=== PATIENT | male | born 1950 | race Caucasian/White ===

== ENCOUNTER 2017-01-13 11:52 | Day surgery (SDC) | payer MEDICARE ==
[~2017-01-13 11:52] MED LIST: EC-81 ASPIRIN81 MG PO; MULTIVITAMIN ME1 TA1 PO; NITROSTAT0.4 MG SL; PRILOSEC20 MG PO
[2017-01-13 17:44] VITALS: BP 138/69
== END 2017-01-13 17:20 | disposition left against medical advice (07) ==
LOC: ENDO 11:52
PROVIDERS: ATTEND Internal Medicine Gastroenterology
PROC: 0DBN8ZX Excision of Sigmoid Colon, Via Natural or Artificial Opening Endoscopic, Diagnostic (ICD-10-PCS; principal; 2017-01-13)
DX: R19.5 Other fecal abnormalities (principal); R19.7 Diarrhea, unspecified; R10.32 Left lower quadrant pain; D12.5 Benign neoplasm of sigmoid colon; K64.4 Residual hemorrhoidal skin tags; K64.8 Other hemorrhoids; K21.9 Gastro-esophageal reflux disease without esophagitis; R11.2 Nausea with vomiting, unspecified; I25.10 Atherosclerotic heart disease of native coronary artery without angina pectoris; I44.1 Atrioventricular block, second degree

== ENCOUNTER 2017-02-08 15:53 | Emergency (ER) | payer MEDICARE ==
[~2017-02-08] VITALS: Ht 190.5 cm; Wt 105.0 kg
[2017-02-08] MEDS ORDERED: CRESTOR5 MG PO (16:36)
[2017-02-08] MEDS ORDERED: MULTI VIT PO (16:37)
[2017-02-08] MEDS ORDERED: BAYER ASPIRIN E81 MG PO (16:37)
[2017-02-08 17:15] VITALS: BP 129/74
== END 2017-02-08 17:15 | disposition home or self-care (01) ==
LOC: ED 15:53
DX: S80.12XA Contusion of left lower leg, initial encounter (principal); W22.8XXA Striking against or struck by other objects, initial encounter; Y93.E9 Activity, other interior property and clothing maintenance; X50.0XXA Overexertion from strenuous movement or load, initial encounter; Y92.009 Unspecified place in unspecified non-institutional (private) residence as the place of occurrence of the external cause